=== PATIENT | male | born 1960 | race Caucasian/White ===

== ENCOUNTER 2022-04-14 05:13 | Day surgery (SDC) | payer MEDICAID ==
[2022-04-14] MEDS ORDERED: Acetaminophen 500 MG Tab PO ONE (05:45)
[2022-04-14] MEDS ORDERED: ceFAZolin 2 GM in Sodium Chloride 0.9% 50 ML IV ONE (06:30)
[2022-04-14] MEDS ORDERED: ceFAZolin 2 GM in Sodium Chloride 0.9% 100 ML IV ONE (06:30)
[2022-04-14] MEDS: Dextrose 5%-Lactated Ringers 1,000 ML IV SCH ×3 (06:36→22:30)
[2022-04-14] MEDS ORDERED: Meropenem 500 MG SDV ONE (06:40)
[2022-04-14] MEDS ORDERED: Bupivacaine 0.5%/EPINEPHrine 1:200,000 50 ML MDV ONE (06:40)
[2022-04-14] MEDS ORDERED: fentaNYL 250 MCG/5 ML SDV ONE (07:08)
[2022-04-14] MEDS ORDERED: Succinylcholine 200 MG/10 ML MDV ONE (07:09)
[2022-04-14] MEDS ORDERED: Rocuronium 50 MG/5 ML Vial ONE (07:09)
[2022-04-14] MEDS ORDERED: Dexamethasone 4 MG/ML SDV ONE (07:09)
[2022-04-14] MEDS ORDERED: Glycopyrrolate 0.2 MG/ML 5 ML MDV ONE (07:09)
[2022-04-14] MEDS ORDERED: Neostigmine Methylsulfate 1 MG/ML 5 ML Syringe ONE (07:09)
[2022-04-14] MEDS ORDERED: Propofol 200 MG/20 ML SDV ONE (07:09)
[2022-04-14] MEDS ORDERED: Ondansetron 4 MG/2 ML SDV ONE (07:09)
[2022-04-14] MEDS ORDERED: Ketamine 500 MG/5 ML MDV IV SCH (07:30)
[2022-04-14] MEDS ORDERED: Ketamine 19 MG in Sodium Chloride 0.9% 19.81 ML IV SCH (07:30)
[2022-04-14] MEDS ORDERED: ePHEDrine 50 MG/ML SDV ONE (07:39)
[2022-04-14] MEDS ORDERED: Sodium Chloride 0.9% 10 ML ONE (07:39)
[2022-04-14] MEDS ORDERED: Linezolid 600 MG/300 ML Premix Bag IRR ONE (07:55)
[2022-04-14] MEDS ORDERED: Atropine 0.4 MG/ML SDV ONE (07:56)
[2022-04-14] MEDS ORDERED: Ketorolac 30 MG/ML SDV ONE (08:14)
[2022-04-14] MEDS ORDERED: diphenhydrAMINE 50 MG/ML SDV ONE (08:16)
[2022-04-14] MEDS ORDERED: Sugammadex Sodium 200 MG/2 ML VIAL ONE (08:17)
[2022-04-14] MEDS ORDERED: HYDROmorphone 1 MG/ML Syringe IV PRN (10:00)
[2022-04-14] MEDS ORDERED: HYDROmorphone 0.5 MG/0.5 ML Syringe IVPUSH PRN (10:00)
[2022-04-14] MEDS ORDERED: Cyclobenzaprine 10 MG Tab PO PRN (10:05)
[2022-04-14] MEDS ORDERED: Ondansetron 4 MG/2 ML SDV IVPUSH PRN (10:05)
[2022-04-14] MEDS: Acetaminophen 500 MG Tab PO SCH ×2 (11:27→19:49)
[2022-04-14] MEDS: Ibuprofen 600 MG Tab PO SCH ×3 (11:27→23:22)
[2022-04-14] MEDS: HYDROmorphone 2 MG Tab PO PRN ×2 (13:31→17:26)
[2022-04-14] MEDS: Enoxaparin 40 MG/0.4 ML Syringe SUBCUT SCH (14:25)
[2022-04-14] MEDS: ceFAZolin 2 GM in Sodium Chloride 0.9% 50 ML IV SCH ×2 (14:25→22:04)
[2022-04-15] MEDS: Acetaminophen 500 MG Tab PO SCH (03:26)
[2022-04-15] MEDS: ceFAZolin 2 GM in Sodium Chloride 0.9% 50 ML IV SCH (05:57)
[2022-04-15] MEDS: Ibuprofen 600 MG Tab PO SCH (05:57)
[2022-04-15] MEDS: Enoxaparin 40 MG/0.4 ML Syringe SUBCUT SCH (08:16)
[2022-04-15] MEDS ORDERED: Aspirin 81 MG Tab.EC PO SCH (09:00)
[2022-04-15] MEDS ORDERED: Metoprolol Succinate 50 MG Tab.ER PO SCH (09:00)
[2022-04-15] MEDS: HYDROmorphone 2 MG Tab PO PRN (10:10)
== END 2022-04-15 10:30 | disposition home or self-care (01) ==
LOC: JP.SDS 05:13 → JP.2SS 08:20 → JP.SDS 04-15 10:30
PROVIDERS: ATTEND Surgery
DX: K43.6 Other and unspecified ventral hernia with obstruction, without gangrene (principal); E66.01 Morbid (severe) obesity due to excess calories; I10 Essential (primary) hypertension; E78.5 Hyperlipidemia, unspecified; M19.90 Unspecified osteoarthritis, unspecified site; Z68.39 Body mass index [BMI] 39.0-39.9, adult; Z79.899 Other long term (current) drug therapy
CPT/HCPCS: 88302; 93005; A9270-GY; C1781; J0171; J0330; J0461; J0690; J1100; J1170; J1200; J1650; J1885; J2020; J2185; J2405; J2704; J2710; J2795; J3010; J3490; J7121